=== PATIENT | male | born 1980 | race Caucasian/White ===

== ENCOUNTER 2020-09-09 14:52 | Outpatient (RCR) | payer BC, SELFPAY ==
[2018-01-02 17:18] VITALS: BMI 28.2
[2020-09-09] MEDS: COVID-19 VACC, MRNA(PFIZER)/PF 30 MCG/0.3 ML SYRINGE IM (16:28)
[2020-09-30] MEDS: COVID-19 VACC, MRNA(PFIZER)/PF 30 MCG/0.3 ML SYRINGE IM (15:48)
== END 2020-09-09 23:59 ==
LOC: IMMUN 14:52
PROVIDERS: PCP Family Medicine; Visit Provider Family Medicine
DX: Z23 Encounter for immunization (principal)
CPT/HCPCS: 0001A; 0002A; 91300

== ENCOUNTER 2021-07-31 15:35 | Outpatient (CLI) | payer BC, SELFPAY | END 2021-07-31 23:59 | disposition home or self-care (01) | LOC: IMMUN 08-01 15:36 | PROVIDERS: PCP Family Medicine; Referring Provider Family Medicine; Visit Provider Family Medicine | DX: Z23 Encounter for immunization (principal) ==